=== PATIENT | male | born 1935 | race Caucasian/White ===

== ENCOUNTER 2021-12-29 15:35 | Observation (INO) | payer MEDICARE, MEDICAID, SELFPAY ==
[2021-12-29 16:05] VITALS: BP 108/58; PULSE 92; RESP 20; TEMP 36.4; O2SAT 89; BMI 15.3
--- NOTE | 2021-12-29 16:10 | PC.NURSE ---
PT PLACED ON 2 L OF O2 VIA NC SPO2 INCREASED TO 92%.
--- NOTE | 2021-12-29 16:33 | XRR_ITS ---
PROCEDURE INFORMATION: Exam: XR Chest Exam date and time: 12/29/2021 5:34 PM Age: 86 years old Clinical indication: Shortness of breath; Additional info: SOB TECHNIQUE: Imaging protocol: Radiologic exam of the chest. Views: 1 view. COMPARISON: No relevant prior studies available. FINDINGS: Lungs: Severe hyperinflation/COPD is noted.. No consolidation. Pleural spaces: Unremarkable. No pleural effusion. No pneumothorax. Heart/Mediastinum: Unremarkable. No cardiomegaly. Bones/joints: No acute abnormality. XR/XR chest 1V portable [id number] IMPRESSION: No acute findings.
--- NOTE | 2021-12-29 16:34 | ECG_ITS ---
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 Measurements Intervals [place] Rate: 91 P: 81 RI: 146 QRS: 99 QRSD: 80 T: 78 QT: 352 QTc: 433 Interpretive Statements SINUS RHYTHM ANTEROLATERAL MYOCARDIAL INFARCTION , OF INDETERMINATE AGE [40+ ms Q WAVE IN I/aVL/V3-V6] INTERPRETATION BASED ON A DEFAULT AGE OF 40 YEARS No previous ECG available for comparison Electronically Signed On 12-29-2021 17:50:25 CDT by Liudmila Arredondo M.D. [email or web address] the [email or web address] ([id number] f
[2021-12-29 17:12] LABS: Basophils # 0.1 10^3/uL (0.0-0.1); Basophils % 0.5 %; Eosinophils # 0.5 10^3/uL (0.0-0.8); Eosinophils % 3.5 %; Hematocrit 37.1 % (42.0-52.0); Hemoglobin 12.1 g/dL (11.7-16.6); Lymphocytes # 1.2 10^3/uL (0.8-4.8); Mean Corpuscular HGB Conc 32.6 g/dL (30.0-36.0); Mean Corpuscular Volume 91.8 fl (80-94); Mean Platelet Volume 9.4 fL (7.4-10.4); Monocytes # 1.3 10^3/uL (0.2-0.9); Monocytes % 8.4 %; Neutrophils # 12.01 10^3/uL (1.8-7.7); Neutrophils % 79.3 %; Nucleated Red Blood Cells % 0 %; Platelet Count 344 10^3/cmm (130-400); Red Blood Count 4.04 10^6/uL (4.1-5.3); Red Cell Distribution Width 14.7 % (12.1-15.1); White Blood Count 15.2 10^3/uL (4.0-10.0)
--- NOTE | 2021-12-29 19:11 | ED_ITS ---
HPI - General Adult General: Chief complaint: Shortness of Breath/Dyspnea Stated complaint: SOB/ WEAKNESS Time Seen by Provider: 12/29/21 19:10 History of Present Illness: Patient is an 86-year-old male with a history of COPD on 2L oxygen at [facility] presenting to the emergency room with complaints of bilateral back and chest pain. Patient tells me that he has noted subjective fever at home earlier today. Around 12:00, patient was sitting down at home when she suddenly noticed sharp knife set pain from bilateral flanks/back radiating to the chest. Patient reports cough and shortness of breath. Patient denies any diarrhea melena medic easier. Patient has no complaints of complaints. Denies any nausea/vomiting, or decreased stooling. Patient has never had pain similar to this before. Onset:12pm Duration:ongoing Location:home Severity:moderate Associated symptoms: Reports chest pain; Deny dyspnea, nausea, rash, palpitations or vomiting Review of Systems Const: Denies: fever(s) or chills Eyes: Denies: change in vision ENMT: Denies: mouth pain Card: Reports: chest pain; Denies: palpitations Resp: Denies: dyspnea or non-productive cough GI: Reports: abdominal pain; Denies: nausea, vomiting or diarrhea : Denies: dysuria Musc: Denies: extremity pain Skin/Breast: Denies: rash or new lesions Neuro: Denies: weakness in extremities Psych: Reports: other (Normal mood) Landon/Lymph: Denies: easy bruising PFSH ED PFSH: Medical History COPD (chronic obstructive pulmonary disease) Social History Smoking and tobacco status: never smoked Alcohol intake: never Substance/Drug Use: never Physical Exam Const: COMMON NORMALS: alert HENMT: COMMON NORMALS: atraumatic HEAD & SCALP: atraumatic MOUTH: moist mucous membranes not abnormal Eye: COMMON NORMALS: EOMs intact bilaterally and conjunctivae normal CONJUNCTIVA: Yes conjunctivae normal Neck/C-Spine: COMMON NORMALS: full ROM and supple Resp: COMMON NORMALS: normal respiratory effort and clear to auscultation bilaterally AUSCULTATION: clear to auscultation bilaterally Cardio: COMMON NORMALS: regular rate RATE: regular rate GI: COMMON NORMALS: Soft to palpation PALPATION: Yes Soft to palpation OTHER: +mild b/l flank TTP. NO guarding rebound, guarding, rigidity. No CVA tenderness to percussion. Neg Rivera/Neg McBurney's point tenderness, no suprabupic tenderness to palpation. Extremity: COMMON NORMALS: full ROM Neuro: SENSORIUM/ORIENTATION: Yes alert MOTOR EXAM: No Abnormal motor strength present and Other motor observations present (no focal motor deficits) Psych: COMMON NORMALS: speech normal SPEECH: Yes normal speech MOOD & AFFECT: Yes euthymic mood Course Vital Signs: Vital signs: Vital Signs Temperature 97.6 F 12/29/21 16:05 Pulse Rate 74 12/29/21 20:43 Respiratory Rate 20 H 12/29/21 20:43 Blood Pressure 125/56 12/29/21 20:43 Pulse Oximetry 100 12/29/21 20:43 Oxygen Delivery Me thod 12/29/21 20:43 Oxygen Flow Rate 2 12/29/21 20:43 MDM - General Adult Medical Decision Making 86-year-old male with history of COPD on 2 L oxygen at baseline presenting to emergency room with sudden onset of sharp abdominal/back pain radiating towards the chest. X-ray chest appears to be clear. Patient is white count 15.2. Sodium 129. Patient is noted to be satting 9324% on room air. CTA chest and pelvis not show any signs of dissection. Patient is noted to have infiltrates in the lungs. Suspect patient has pneumonia given similar cough subjective fever and shortness of breath. Patient received ceftriaxone azithromycin in the emergency room. Given age of 86 and multiple comorbidities, patient will be to the hospital for further management pneumonia. Disposition: admission Lab Data : 12/29/21 16:58 12/29/21 19:35 Radiology Impressions Chest X-Ray 12/29/21 16:33 IMPRESSION: No acute findings. Chest/Abdomen/Pelvis CTA 12/29/21 19:27 IMPRESSION: No acute vascular findings. Scattered bronchial opacification at lower lobes greater on the left. Mild dependent airspace disease right lower lobe can represent atelectasis or infiltrate. Advanced atheromatous disease especially in right lower extremity. Additional details as above. COMMENTS: Consistent with the [employer]'s Incidental Findings Committee white paper (J Am Eva Radiol 2018): Any incidental renal lesion less than 1 cm or classified as too small to characterize, or any incidental cystic renal lesion characterized as simple-appearing, is likely benign. No follow-up imaging is recommended for these lesions per consensus recommendations based on imaging criteria. Laboratory Results WBC 15.2 10^3/uL (4.0-10.0) H 12/29/21 16:58 RBC 4.04 10^6/uL (4.1-5.3) L 12/29/21 16:58 Hgb 12.1 g/dL (11.7-16.6) 12/29/21 16:58 Hct 37.1 % (42.0-52.0) L 12/29/21 16:58 MCV 91.8 fl (80-94) 12/29/21 16:58 MCH 30.0 pg (28.0-34.0) 12/29/21 16:58 MCHC 32.6 g/dL (30.0-36.0) 12/29/21 16:58 RDW 14.7 % (12.1-15.1) 12/29/21 16:58 Plt Count 344 10^3/cmm (130-400) 12/29/21 16:58 MPV 9.4 fL (7.4-10.4) 12/29/21 16:58 Neut % (Auto) 79.3 % 12/29/21 16:58 Lymph % (Auto) 8.0 % 12/29/21 16:58 Pepin % (Auto) 8.4 % 12/29/21 16:58 Eos % (Auto) 3.5 % 12/29/21 16:58 Baso % (Auto) 0.5 % 12/29/21 16:58 Neut # (Auto) 12.01 10^3/uL (1.8-7.7) H 12/29/21 16:58 Lymph # (Auto) 1.2 10^3/uL (0.8-4.8) 12/29/21 16:58 Pepin # (Auto) 1.3 10^3/uL (0.2-0.9) H 12/29/21 16:58 Eos # (Auto) 0.5 10^3/uL (0.0-0.8) 12/29/21 16:58 Baso # (Auto) 0.1 10^3/uL (0.0-0.1) 12/29/21 16:58 Nucleated RBC % (auto) 0 % 12/29/21 16:58 Nucleated RBCs # 0.0 /100WBC 12/29/21 16:58 Sodium 129 mmol/L (136-145) L 12/29/21 19:35 Potassium 4.9 mmol/L (3.5-5.1) 12/29/21 19:35 Chloride 92 mmol/L (98-107) L 12/29/21 19:35 Carbon Dioxide 25 mmol/L (22-29) 12/29/21 19:35 Anion Gap 16.9 (5-19) 12/29/21 19:35 BUN 17 mg/dL (8-23) 12/29/21 19:35 Creatinine 0.6 mg/dL (0.7-1.2) L 12/29/21 19:35 GFR Calculation Not Reportable 12/29/21 19:35 Glucose 108 mg/dL (65-115) 12/29/21 19:35 Calculated Osmolality 270 mOsm/kg (285-295) L 12/29/21 19:35 Calcium 9.4 mg/dL (8.5-10.5) 12/29/21 19:35 Total Bilirubin 0.6 mg/dL (0.15-1.2) 12/29/21 19:35 AST 19 U/L (0-40) 12/29/21 19:35 ALT 8 U/L (0-41) 12/29/21 19:35 Alkaline Phosphatase 74 U/L (40-130) 12/29/21 19:35 Troponin T Baseline 22 ng/L (0-15) H 12/29/21 19:35 Troponin T 120 Minute 20.18 ng/L (0-15) H 12/29/21 21:50 Delta Troponin T -1.82 ABS# (0-10) L 12/29/21 21:50 C-Reactive Protein 6.0 mg/L (0.0-4.9) H 12/29/21 19:35 NT-Pro-B Natriuret Pep 1019 pg/mL (0-450) H 12/29/21 19:35 Total Protein 7.1 g/dL (6.6-8.7) 12/29/21 19:35 Albumin 4.1 g/dL (3.5-5.2) 12/29/21 19:35 Globulin 3.0 g/dL (1.3-4.6) 12/29/21 19:35 Procalcitonin 0.09 ng/mL (0-0.5) 12/29/21 19:35 Coronavirus 229E (PCR) Not detected (NOT DETECT) 12/29/21 20:44 SARS-CoV-2 (PCR) Not detected (NOT DETECT) 12/29/21 20:44 Imaging Data Other Imaging: Radiologist's impression: [employer] [place] [address] CT Scan Report Signed Patient: Jitendra Kraft Unit #: [id number] : 1935 Age/Sex: 86 / M ADM Date: 12/29/21 Loc: ER Room/Bed: Attending Dr: Ordering Provider/Ordering MD: Pieter Poe MD Date of Service: 12/29/21 Procedure(s): CT angio chest abdomen pelvis Accession Number(s): [id number] Report Number: [id number] PROCEDURE INFORMATION: Exam: CTA Chest Without And With Contrast CTA Abdomen and Pelvis With Contrast Exam date and time: 12/29/2021 9:34 PM Age: 86 years old Clinical indication: Abdominal pain; Acute; Additional info: Sharp pain, possible dissection TECHNIQUE: Imaging protocol: Computed tomographic angiography of the chest without and with contrast. Computed tomographic angiography of the abdomen and pelvis with contrast. 3D rendering (Not supervised by radiologist): MIP and/or 3D reconstructed images were created by the technologist. Radiation optimization: All CT scans at this facility use at least one of these dose optimization techniques: automated exposure control; mA and/or kV adjustment per patient size (includes targeted exams where dose is matched to clinical indication); or iterative reconstruction. Contrast material: OMNIPAQUE 350; Contrast volume: 80 ml; Contrast route: INTRAVENOUS (IV);? COMPARISON: CR (CHEST, ) 12/29/2021 5:34 PM RADIATION DOSE METRICS: Total DLP (mGy-cm): 562.35 FINDINGS: VASCULATURE: Pulmonary arteries: Normal. No pulmonary emboli. Aorta: Aortic calcifications are noted. No findings of aortic aneurysm or acute aortic abnormality. Celiac trunk and mesenteric arteries: No occlusion or significant stenosis. Renal arteries: No occlusion.? Moderate narrowing left renal artery origin. Right iliac arteries: Stent in place in right common iliac artery. Moderate diffuse disease right external iliac artery. Right internal iliac artery appears occluded. Right femoral/popliteal arteries: Visualized right superficial femoral artery shows occlusive disease. Left iliac arteries: Suspected moderate narrowing distal left external iliac artery. Moderate to marked narrowing left internal iliac artery. CHEST: Lungs: Mild upper lobe predominant emphysema. Scattered bronchial opacification at lower lobes greater on the left. Mild dependent airspace disease right lower lobe. Pleural spaces: Unremarkable. No pneumothorax. No pleural effusion. Heart: Coronary calcifications are noted. ABDOMEN AND PELVIS: Liver: No mass. Gallbladder and bile ducts: Unremarkable. No calcified stones. No ductal dilation. Pancreas: Unremarkable. No mass. No ductal dilation. Spleen: Unremarkable. No splenomegaly. Adrenal glands: Unremarkable. No mass. Kidneys and ureters: Cyst at lower right kidney is likely benign. No hydronephrosis. Stomach and bowel: Unremarkable. No obstruction. No mucosal thickening. Appendix: No evidence of appendicitis. Intraperitoneal space: Unremarkable. No free air. No significant fluid collection. Urinary bladder: Unremarkable. No mass. Reproductive: Unremarkable as visualized. Lymph nodes: Unremarkable. No enlarged lymph nodes. Bones/joints: Unremarkable. No acute fracture. Soft tissues: Unremarkable. CT/CT angio chest abdomen pelvis IMPRESSION: No acute vascular findings. Scattered bronchial opacification at lower lobes greater on the left. Mild dependent airspace disease right lower lobe can represent atelectasis or infiltrate. Advanced atheromatous disease especially in right lower extremity. Additional details as above. ? COMMENTS: Consistent with the [employer]'s Incidental Findings Committee white paper (J Am Eva Radiol 2018): Any incidental renal lesion less than 1 cm or classified as too small to characterize, or any incidental cystic renal lesion characterized as simple-appearing, is likely benign. No follow-up imaging is recommended for these lesions per consensus recommendations based on imaging criteria. ? Dictated By: Pranav Wang MD Signed By: Pranav Wang MD Signed Date/Time: 12/29/212238 DD/ [address] [address] XRay Report Signed Patient: Jitendra Kraft Unit #: [id number] : 1935 Age/Sex: 86 / M ADM Date: 12/29/21 Loc: ER Room/Bed: Attending Dr: Ordering Provider/Ordering MD: Estee Mallory Date of Service: 12/29/21 Procedure(s): XR chest 1V portable [id number] Accession Number(s): [id number] Report Number: [id number] PROCEDURE INFORMATION: Exam: XR Chest Exam date and time: 12/29/2021 5:34 PM Age: 86 years old Clinical indication: Shortness of breath; Additional info: SOB TECHNIQUE: Imaging protocol: Radiologic exam of the chest. Views: 1 view. COMPARISON: No relevant prior studies available. FINDINGS: Lungs: Severe hyperinflation/COPD is noted.. No consolidation. Pleural spaces: Unremarkable. No pleural effusion. No pneumothorax. Heart/Mediastinum: Unremarkable. No cardiomegaly. Bones/joints: No acute abnormality. XR/XR chest 1V portable [id number] IMPRESSION: No acute findings. ? Dictated By: Luciana Siddiqui Signed By: Luciana Siddiqui Signed Date/Time: 12/29/21 1800 DD/ Discharge Plan Discharge Patient Disposition: Admitted As Inpatient Clinical Impression: Pneumonia Condition: Stable Coding Level of Care Code ED Staff Nurse for Chg Fwd Exam Comprehensive
--- NOTE | 2021-12-29 19:12 | ECG_ITS ---
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 Measurements Intervals [place] Rate: 84 P: 72 DC: 156 QRS: 93 QRSD: 82 T: 72 QT: 368 QTc: 436 Interpretive Statements SINUS RHYTHM BORDERLINE RIGHT AXIS DEVIATION [QRS AXIS > 90] Compared to ECG 12/29/2021 16:03:23 Myocardial infarct finding no longer present Electronically Signed On 12-30-2021 14:55:01 CDT by Liudmila Arredondo M.D. [email or web address] [id number]
--- NOTE | 2021-12-29 19:27 | CTR_ITS ---
PROCEDURE INFORMATION: Exam: CTA Chest Without And With Contrast CTA Abdomen and Pelvis With Contrast Exam date and time: 12/29/2021 9:34 PM Age: 86 years old Clinical indication: Abdominal pain; Acute; Additional info: Sharp pain, possible dissection TECHNIQUE: Imaging protocol: Computed tomographic angiography of the chest without and with contrast. Computed tomographic angiography of the abdomen and pelvis with contrast. 3D rendering (Not supervised by radiologist): MIP and/or 3D reconstructed images were created by the technologist. Radiation optimization: All CT scans at this facility use at least one of these dose optimization techniques: automated exposure control; mA and/or kV adjustment per patient size (includes targeted exams where dose is matched to clinical indication); or iterative reconstruction. Contrast material: OMNIPAQUE 350; Contrast volume: 80 ml; Contrast route: INTRAVENOUS (IV); COMPARISON: CR (CHEST, ) 12/29/2021 5:34 PM RADIATION DOSE METRICS: Total DLP (mGy-cm): 562.35 FINDINGS: VASCULATURE: Pulmonary arteries: Normal. No pulmonary emboli. Aorta: Aortic calcifications are noted. No findings of aortic aneurysm or acute aortic abnormality. Celiac trunk and mesenteric arteries: No occlusion or significant stenosis. Renal arteries: No occlusion. Moderate narrowing left renal artery origin. Right iliac arteries: Stent in place in right common iliac artery. Moderate diffuse disease right external iliac artery. Right internal iliac artery appears occluded. Right femoral/popliteal arteries: Visualized right superficial femoral artery shows occlusive disease. Left iliac arteries: Suspected moderate narrowing distal left external iliac artery. Moderate to marked narrowing left internal iliac artery. CHEST: Lungs: Mild upper lobe predominant emphysema. Scattered bronchial opacification at lower lobes greater on the left. Mild dependent airspace disease right lower lobe. Pleural spaces: Unremarkable. No pneumothorax. No pleural effusion. Heart: Coronary calcifications are noted. ABDOMEN AND PELVIS: Liver: No mass. Gallbladder and bile ducts: Unremarkable. No calcified stones. No ductal dilation. Pancreas: Unremarkable. No mass. No ductal dilation. Spleen: Unremarkable. No splenomegaly. Adrenal glands: Unremarkable. No mass. Kidneys and ureters: Cyst at lower right kidney is likely benign. No hydronephrosis. Stomach and bowel: Unremarkable. No obstruction. No mucosal thickening. Appendix: No evidence of appendicitis. Intraperitoneal space: Unremarkable. No free air. No significant fluid collection. Urinary bladder: Unremarkable. No mass. Reproductive: Unremarkable as visualized. Lymph nodes: Unremarkable. No enlarged lymph nodes. Bones/joints: Unremarkable. No acute fracture. Soft tissues: Unremarkable. CT/CT angio chest abdomen pelvis IMPRESSION: No acute vascular findings. Scattered bronchial opacification at lower lobes greater on the left. Mild dependent airspace disease right lower lobe can represent atelectasis or infiltrate. Advanced atheromatous disease especially in right lower extremity. Additional details as above. COMMENTS: Consistent with the [employer]'s Incidental Findings Committee white paper (J Am Eva Radiol 2018): Any incidental renal lesion less than 1 cm or classified as too small to characterize, or any incidental cystic renal lesion characterized as simple-appearing, is likely benign. No follow-up imaging is recommended for these lesions per consensus recommendations based on imaging criteria.
[2021-12-29 20:10] VITALS: RESP 20; O2SAT 98
[2021-12-29] MEDS: morphine 4 mg/mL SDV 1 mL IVP (20:10)
[2021-12-29 20:17] LABS: Alanine Aminotransferase 8 U/L (0-41); Albumin Level 4.1 g/dL (3.5-5.2); Alkaline Phosphatase 74 U/L (40-130); Anion Gap 16.9 (5-19); Aspartate Amino Transferase 19 U/L (0-40); Blood Urea Nitrogen 17 mg/dL (8-23); Calcium 9.4 mg/dL (8.5-10.5); Carbon Dioxide 25 mmol/L (22-29); Chloride 92 mmol/L (98-107); Glucose 108 mg/dL (65-115); Osmolality Calculated 270 mOsm/kg (285-295); Potassium 4.9 mmol/L (3.5-5.1); Sodium 129 mmol/L (136-145); Total Bilirubin 0.6 mg/dL (0.15-1.2); Total Protein 7.1 g/dL (6.6-8.7)
[2021-12-29 20:21] LABS: Troponin(5th) Baseline 22 ng/L (0-15)
[2021-12-29 20:43] VITALS: BP 125/56; PULSE 74; RESP 20; O2SAT 100
[2021-12-29 21:01] LABS: NT Pro B Type Natriuretic Pept 1019 pg/mL (0-450)
[2021-12-29] MEDS: iohexol 350 mg/mL 100 mL Btl IV (21:16)
[2021-12-29 21:33] LABS: Procalcitonin 0.09 ng/mL (0-0.5)
[2021-12-29 22:00] VITALS: BP 144/56; PULSE 76; RESP 22; O2SAT 95
[2021-12-29 22:30] LABS: Troponin 5 2HR 20.18 ng/L (0-15)
--- NOTE | 2021-12-29 22:34 | ECG_ITS ---
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 Measurements Intervals [place] Rate: 81 P: 79 AK: 162 QRS: 93 QRSD: 86 T: 72 QT: 383 QTc: 447 Interpretive Statements SINUS RHYTHM WITH OCCASIONAL SUPRAVENTRICULAR PREMATURE COMPLEXES BORDERLINE RIGHT AXIS DEVIATION [QRS AXIS > 90] Compared to ECG 12/29/2021 19:12:47 No significant changes Electronically Signed On 12-30-2021 17:21:14 CDT by Xiang Oro M.D. [id number]
[2021-12-29 22:35] LABS: Adenovirus Not Detected (NOT DETECT); Chlamydia Pneumoniae Not Detected (NOT DETECT); Coronavirus 229E,HKU1,NL63,OC4 Not Detected (NOT DETECT); Human Metapneumovirus Not Detected (NOT DETECT); Human Rhinovirus/Enterovirus Not Detected (NOT DETECT); Influenza A Not Detected (NOT DETECT); Influenza A H1 Not Detected (NOT DETECT); Influenza A H1-2009 Not Detected (NOT DETECT); Influenza A H3 Not Detected (NOT DETECT); Influenza B Not Detected (NOT DETECT); Mycoplasma Pneumoniae Not Detected (NOT DETECT); Parainfluenza Virus Type 1 Not Detected (NOT DETECT); Parainfluenza Virus Type 2 Not Detected (NOT DETECT); Parainfluenza Virus Type 3 Not Detected (NOT DETECT); Parainfluenza Virus Type 4 Not Detected (NOT DETECT); Respiratory Syncytial Virus A Not Detected (NOT DETECT); Respiratory Syncytial Virus B Not Detected (NOT DETECT); SARS-COV-2 Not Detected (NOT DETECT)
[2021-12-29 22:36] LABS: Troponin 5 2HR Delta -1.82 ABS# (0-10)
[2021-12-29] MEDS: cefTRIAXone 1,000 MG in sodium chloride 0.9% (plus) 50 ML 100 MG IV (22:50)
[2021-12-29] MEDS: azithromycin 500 MG in sodium chloride 0.9% 250 ML 250 MG IV (23:38)
[2021-12-29 23:45] VITALS: BP 180/67; PULSE 108; RESP 21; O2SAT 94
[2021-12-30] VITALS (13 sets, daily range): BP systolic 121–152; BP diastolic 46–65; PULSE 74–88; RESP 16–24; TEMP 36.2–36.5; O2SAT 95–100
--- NOTE | 2021-12-30 00:09 | USCV_ITS ---
Jitendra Kraft Age: 86 Gender: M : 1935 Exam Date: 12/30/2021 04:00 Ordering Phys: Beni Kumar MD Technologist: GISEL [place] [facility] [place]: shortness of breath. No history of cardiac intervention per patient. BP: 152 / 59 HR: 79 Rhythm: Sinus Technical Quality: Adequate MEASUREMENTS (Male / Female) Normal Values 2D ECHO LV Diastolic Diameter PLAX 2.9 cm 4.2 - 5.9 / 3.9 - 5.3 cm LV Systolic Diameter PLAX 1.8 cm IVS Diastolic Thickness 1.1 cm 0.6 - 1.0 / 0.6 - 0.9 cm IVS Systolic Thickness 1.9 cm LVPW Diastolic Thickness 1.1 cm 0.6 - 1.0 / 0.6 - 0.9 cm LVPW Systolic Thickness 1.5 cm LVOT Diameter 1.5 cm LV Ejection Fraction 2D Teich 69.9 % LV Ejection Fraction MOD 2C 41.8 % LV Ejection Fraction 2C AL 41.3 % LA Diameter 2.4 cm LA Width 3.3 cm LA Height 4.8 cm RA Width 3.6 cm RA Height 3.1 cm Aorta at Sinotubular Diameter 2.4 cm IVC Diameter 0.9 cm M-MODE Aortic Annulus Diameter 2.6 cm LA Ao Ratio MM 0.8 MV E Point Septal Separation 0.3 cm DOPPLER AV Peak Velocity 140.0 cm/s LVOT Peak Velocity 91.0 cm/s AV Area Cont Eq vti 1.2 cm squared AV Area Cont Eq pk 1.1 cm squared MV Peak Velocity 76.0 cm/s MV Area PHT 3.4 cm squared Mitral E to A Ratio 0.8 MV E' Velocity 34.0 cm/s Mitral E to MV E' Ratio 6.9 Mitral E to LV E' Lateral Ratio 5.7 Mitral E to LV E' Septal Ratio 8.8 TR Peak Velocity 275.0 cm/s TR Peak Gradient 30.3 mmHg TV Peak E Velocity 36.0 cm/s Right Atrial Pressure 5.0 mmHg Pulmonary Artery Systolic Pressu 35.3 mmHg PV Peak Velocity 113.0 cm/s RV Acceleration Time 0.1 s RV Ejection Time 0.3 s RV AcT/ET 0.4 FINDINGS Left Ventricle Left ventricle is normal in size. LV systolic function is normal with LV EF of 55 to 60%. No regional wall motion abnormalities are seen. Grade 1 diastolic dysfunction Right Ventricle Right ventricle is normal in size and function Right Atrium Normal in size Left Atrium Normal in size Mitral Valve Mitral valve is significantly thickened. No significant regurgitation Aortic Valve Aortic valve is thickened. Moderate aortic regurgitation is seen Tricuspid Valve Mild tricuspid regurgitation. Insufficient TR jet to calculate RVSP. Pulmonic Valve Not well visualized Pericardium Normal Aorta Normal in size IVC CONCLUSIONS LV systolic function is normal with EF 55 to 60%. Grade 1 diastolic dysfunction. Mitral valve is significantly thickened. Moderate aortic regurgitation noted. Mild tricuspid regurgitation. No comparison studies are available Xiang Oro MD (Electronically Signed) Final Date: 30 December 2021 12:43 S
--- NOTE | 2021-12-30 00:10 | P.HP_ITS ---
Providers/Chief Complaint Chief Complaint: SOB/ WEAKNESS History of Present Illness Jitendra Kraft is a 86 year old male with a past medical history of CAD, on 3 blood thinners, COPD, history of smoking, prostate surgery, on 2 L, who presents to to [facility] due to shortness of breath, cough, fatigue, malaise. He tells me that he is received 4 COVID vaccinations, does report subjective fevers, chills, productive cough, shortness of breath with exertion. He has also complaints of chest pain with his shortness of breath with exertion. Does report a cardiac vascular history, never had a stent but tells me he is on blood thinners, one of them is aspirin but he cannot remember the rest. Denies any diabetes, no history of strokes, no history of liver disease, no history of kidney disease, no history of cancers. In the emergency room he was found to have a pneumonia, given antibiotics, placed on 3 L, however he still complains of shortness of breath but tells me is feeling better. Review of Systems Const: Reports: fever(s) and chills Card: Reports: chest pain Resp: Reports: dyspnea and non-productive cough GI: Denies: abdominal pain : Denies: difficulty urinating Skin/Breast: Denies: rash Medications/Allergies Allergies Allergy/AdvReac Type Severity Reaction Status Date / Time No Known Allergies Allergy Verified 12/29/21 16:05 PFSH Acute PFSH: Medical History (Updated 12/30/21 @ 00:16 by Beni Kumar MD) COPD (chronic obstructive pulmonary disease) History of coronary artery disease Surgical History (Updated 12/30/21 @ 00:13 by Beni Kumar MD) History of prostate surgery Family History (Updated 12/30/21 @ 00:13 by Beni Kumar MD) Sister Old age Social History Smoking and tobacco status: never smoked Alcohol intake: never Substance/Drug Use: never Vitals/I&O/Wt Last Vital Signs Temp 97.6 F 12/29/21 16:05 Pulse 108 H 12/29/21 23:45 Resp 21 H 12/29/21 23:45 BP 180/67 12/29/21 23:45 Pulse Ox 94 12/29/21 23:45 O2 Del Method 12/29/21 23:45 O2 Flow Rate 3 12/29/21 23:45 Weight last 48 hrs Weight 43.091 kg Physical Exam Const: COMMON NORMALS: no acute distress and patient oriented x3 HENMT: COMMON NORMALS: normocephalic HEAD & SCALP: normocephalic Eye: COMMON NORMALS: Equal, round and reactive pupils present and EOMs intact bilaterally Neck/C-Spine: COMMON NORMALS: no JVD Resp: COMMON NORMALS: normal respiratory effort, No retractions and No use of accessory muscles AUSCULTATION: wheezes Cardio: COMMON NORMALS: no JVD, regular rate, regular rhythm, S1 normal heart sound present and S2 normal heart sound present RATE: regular rate RHYTHM: regular rhythm HEART SOUNDS: S1 normal heart sound present and S2 normal heart sound present GI: COMMON NORMALS: Normal to inspection, nondistended, normoactive bowel sounds present, Soft to palpation, non-tender, No hepatosplenomegaly present, no masses and no bruits PALPATION: Yes Soft to palpation and Yes No hepatosplenomegaly present Extremity: COMMON NORMALS: capillary refill normal, no clubbing, cyanosis or edema, no calf tenderness and no pedal edema Neuro: COMMON NORMALS: patient oriented x3, CN's II-XII intact bilaterally, moves all extremities and no focal motor deficits Psych: COMMON NORMALS: mental status grossly normal Data : 12/29/21 16:58 12/29/21 19:35 A&P Assessment and plan (1) Pneumonia: Status: Acute (2) COPD exacerbation: Status: Acute (3) Chest pain: Status: Acute (4) Hyponatremia: Status: Acute Plan Pneumonia -Sputum cultures, blood cultures -Rocephin and azithromycin -Monitor respiratory status -Monitor inflammatory markers -Full code -Lovenox for DVT prophylaxis COPD exacerbation -DuoNeb -Solu-Medrol followed by prednisone -Antibiotics as above -Monitor respiratory status Chest pain complaints -Sounds atypical -Serial EKGs, serial troponins, telemetry monitoring -Aspirin, statin -Patient tells me that he is on 3 blood thinners, but he only remembers aspirin, will need to call pharmacy tomorrow morning Hyponatremia, likely secondary to pneumonia, COPD, monitor Does have elevated BNP, no pitting edema on exam, will consider Lasix Attestations Medical Necessity Statement*: Patient requires hospitalization, outpatient with observation, for pneumonia, COPD exacerbation, hyponatremia, chest pain Coding Level of Care Code Acute [employer] for [facility] Diagnoses Pneumonia J18.9 COPD exacerbation J44.1 Chest pain R07.9 Hyponatremia E87.1
[2021-12-30 00:45] LABS: Estmated Average Glucose 105; Hemoglobin A1C 5.3 % (4.0-6.0)
[2021-12-30] MEDS: amlodipine 10 mg Tablet PO (01:18)
[2021-12-30] MEDS: aspirin 81 mg EC Tablet PO ×2 (01:18→08:43)
[2021-12-30] MEDS: enoxaparin 40 mg/0.4 mL Syringe SUBCUT (01:18)
[2021-12-30] MEDS: atorvastatin 40 mg Tablet PO (01:18)
[2021-12-30] MEDS: pantoprazole 40 mg SDV IVP (01:18)
--- NOTE | 2021-12-30 07:15 | PC.NURSE ---
Pt resting in bed, was sleeping and woke up when nurse entered room. Reconnected pt to VS monitor. Pt is alert and oriented to person, place, and time. Denies any current chest pain or shortness of breath. Reports had dizziness last time he attempted to stand up. Lungs sounds clear bilat. Call light within reach and instructed on use. Side rails up. Lights dimmed for pt comfort. Pt denies further needs at this time.
--- NOTE | 2021-12-30 08:07 | PC.PHAR ---
pt unable to verify medications-pt state his daughter deena could verify his medications-called deena [phone] no answer left message-medications entered are meds that ext med history shows has been filled recently-notes are made in the pharmacy comments with last fill dates and d/s-lisinopril 10mg daily filled on 09/23/21 90d/s and lisinopril 5mg daily filled 12/22/21
[2021-12-30] MEDS: ipratropium-albuterol 3 mL Neb INHALATION ×2 (08:16→11:36)
[2021-12-30] MEDS: budesonide 0.5 mg/2 mL Neb INHALATION (08:16)
[2021-12-30] MEDS: predniSONE 20 mg Tablet 40 MG PO (08:43)
--- NOTE | 2021-12-30 09:49 | PC.NURSE ---
Patient resting in bed, utilizing the urinal without assistance. Pt denies needs at this time. Call light within reach, instructed on use.
--- NOTE | 2021-12-30 10:02 | PC.NURSE ---
answered call light, pt requesting assistance to find his cell phone so he can call a ride at discharge. Assisted patient, phone found in bed and handed to patient. Call light remains in place.
[2021-12-30] MEDS: acetaminophen 325 mg Tablet 650 MG PO (10:09)
--- NOTE | 2021-12-30 10:11 | PC.NURSE ---
Pt reports pain described as knots in his stomach rated 7/10. Pt states he does not want morphine. Informed pt that he has PRN tylenol ordered as well, pt stated he would like the tylenol. Medication brought to patient.
--- NOTE | 2021-12-30 10:35 | PM.DCS ---
Discharge Providers Date of Admission: 12/30/21 00:42 Date of Discharge: December 30, 2021 Attending Provider at Admission: Beni Kumar MD Attending Provider at Discharge: Bean Morales MD Diagnoses at Discharge Discharge Diagnosis (1) Pneumonia: Status: Acute (2) COPD exacerbation: Status: Acute (3) Chest pain: Status: Acute (4) Hyponatremia: Status: Acute Reason for Visit Reason for Visit: SOB/ WEAKNESS Hospital Course Hospital Course 86-year male who uses 3 L of oxygen at baseline presented to the hospital worsening shortness of breath. He has been diagnosed with community-acquired pneumonia, he remained afebrile, leukocytosis 1 15,000, patient on 12/30 was seen in the ER bed #5, patient is stating that he wants to go home as his ox requirement has not worsened and he is feeling better. He is asking for a wheelchair. At the time of discharge I will give him a wheelchair, Augmentin, 4 days of Lasix his echo report is pending, clinically he looks dehydrated. He does have hyponatremia, with high BNP, I will follow-up with his echo report and update him. We will give him a BMP prescription as well to be checked after 3 days. I will refill his albuterol nebulizer, Physical Exam Narrative: On clinical exam I did not appreciate rhonchi or wheezing, mild crackles at base of the lungs Currently on 3 L nasal cannula Awake and alert Clinically does not look fluid overloaded Abdomen is soft Right below-knee amputation No signs of edema or erythema of left leg Nonfocal neuro exam Hard of hearing Conversational dyspnea Discharge Data Studies Completed and Pending Completed Studies During Hospitalization Category Date Time Status CTA chest abdomen pelvis [CT angio chest abdomen pelvis Cat Scan 12/29/21 19:27 Completed ] Stat XR chest 1V portable [id number] Urgent Exams 12/29/21 16:33 Completed Pending at discharge Category Date Time Status C Reactive Protein AM LABS Lab 12/31/21 04:00 Ordered C Reactive Protein AM LABS Lab 01/01/22 04:00 Ordered C Reactive Protein AM LABS Lab 01/02/22 04:00 Ordered Complete Blood Count w/Auto AM LABS Lab 12/31/21 04:00 Ordered Complete Blood Count w/Auto AM LABS Lab 01/01/22 04:00 Ordered Complete Blood Count w/Auto AM LABS Lab 01/02/22 04:00 Ordered Comprehensive Metabolic Panel AM LABS Lab 12/31/21 04:00 Ordered Comprehensive Metabolic Panel AM LABS Lab 01/01/22 04:00 Ordered Comprehensive Metabolic Panel AM LABS Lab 01/02/22 04:00 Ordered Lipid Panel AM LABS Lab 12/31/21 04:00 Ordered Magnesium AM LABS Lab 12/31/21 04:00 Ordered Magnesium AM LABS Lab 01/01/22 04:00 Ordered Magnesium AM LABS Lab 01/02/22 04:00 Ordered NT Pro B Type Natriuretic Pept QAM Lab 12/31/21 06:00 Ordered NT Pro B Type Natriuretic Pept QAM Lab 01/01/22 06:00 Ordered NT Pro B Type Natriuretic Pept QAM Lab 01/02/22 06:00 Ordered Phosphorus AM LABS Lab 12/31/21 04:00 Ordered Phosphorus AM LABS Lab 01/01/22 04:00 Ordered Phosphorus AM LABS Lab 01/02/22 04:00 Ordered Procalcitonin AM LABS Lab 12/31/21 04:00 Ordered Procalcitonin AM LABS Lab 01/01/22 04:00 Ordered Procalcitonin AM LABS Lab 01/02/22 04:00 Ordered Prothrombin Time INR AM LABS Lab 12/31/21 04:00 Ordered Prothrombin Time INR AM LABS Lab 01/01/22 04:00 Ordered Prothrombin Time INR AM LABS Lab 01/02/22 04:00 Ordered Thyroid Stimulating Hormone AM LABS Lab 12/31/21 04:00 Ordered CV. echo complete* [id number] Stat Ultrasound 12/30/21 00:09 Taken Radiology Impressions Chest X-Ray 12/29/21 16:33 IMPRESSION: No acute findings. Chest/Abdomen/Pelvis CTA 12/29/21 19:27 IMPRESSION: No acute vascular findings. Scattered bronchial opacification at lower lobes greater on the left. Mild dependent airspace disease right lower lobe can represent atelectasis or infiltrate. Advanced atheromatous disease especially in right lower extremity. Additional details as above. COMMENTS: Consistent with the [employer]'s Incidental Findings Committee white paper (J Am Eva Radiol 2018): Any incidental renal lesion less than 1 cm or classified as too small to characterize, or any incidental cystic renal lesion characterized as simple-appearing, is likely benign. No follow-up imaging is recommended for these lesions per consensus recommendations based on imaging criteria. Laboratory Results WBC 15.2 10^3/uL (4.0-10.0) H 12/29/21 16:58 RBC 4.04 10^6/uL (4.1-5.3) L 12/29/21 16:58 Hgb 12.1 g/dL (11.7-16.6) 12/29/21 16:58 Hct 37.1 % (42.0-52.0) L 12/29/21 16:58 MCV 91.8 fl (80-94) 12/29/21 16:58 MCH 30.0 pg (28.0-34.0) 12/29/21 16:58 MCHC 32.6 g/dL (30.0-36.0) 12/29/21 16:58 RDW 14.7 % (12.1-15.1) 12/29/21 16:58 Plt Count 344 10^3/cmm (130-400) 12/29/21 16:58 MPV 9.4 fL (7.4-10.4) 12/29/21 16:58 Neut % (Auto) 79.3 % 12/29/21 16:58 Lymph % (Auto) 8.0 % 12/29/21 16:58 Ward % (Auto) 8.4 % 12/29/21 16:58 Eos % (Auto) 3.5 % 12/29/21 16:58 Baso % (Auto) 0.5 % 12/29/21 16:58 Neut # (Auto) 12.01 10^3/uL (1.8-7.7) H 12/29/21 16:58 Lymph # (Auto) 1.2 10^3/uL (0.8-4.8) 12/29/21 16:58 Ward # (Auto) 1.3 10^3/uL (0.2-0.9) H 12/29/21 16:58 Eos # (Auto) 0.5 10^3/uL (0.0-0.8) 12/29/21 16:58 Baso # (Auto) 0.1 10^3/uL (0.0-0.1) 12/29/21 16:58 Nucleated RBC % (auto) 0 % 12/29/21 16:58 Nucleated RBCs # 0.0 /100WBC 12/29/21 16:58 Sodium 129 mmol/L (136-145) L 12/29/21 19:35 Potassium 4.9 mmol/L (3.5-5.1) 12/29/21 19:35 Chloride 92 mmol/L (98-107) L 12/29/21 19:35 Carbon Dioxide 25 mmol/L (22-29) 12/29/21 19:35 Anion Gap 16.9 (5-19) 12/29/21 19:35 BUN 17 mg/dL (8-23) 12/29/21 19:35 Creatinine 0.6 mg/dL (0.7-1.2) L 12/29/21 19:35 GFR Calculation Not Reportable 12/29/21 19:35 Glucose 108 mg/dL (65-115) 12/29/21 19:35 Estimat Average Glucose 105 12/29/21 16:57 Hemoglobin A1c 5.3 % (4.0-6.0) 12/29/21 16:57 Calculated Osmolality 270 mOsm/kg (285-295) L 12/29/21 19:35 Calcium 9.4 mg/dL (8.5-10.5) 12/29/21 19:35 Total Bilirubin 0.6 mg/dL (0.15-1.2) 12/29/21 19:35 AST 19 U/L (0-40) 12/29/21 19:35 ALT 8 U/L (0-41) 12/29/21 19:35 Alkaline Phosphatase 74 U/L (40-130) 12/29/21 19:35 Troponin T Baseline 22 ng/L (0-15) H 12/29/21 19:35 Troponin T 120 Minute 20.18 ng/L (0-15) H 12/29/21 21:50 Delta Troponin T -1.82 ABS# (0-10) L 12/29/21 21:50 Troponin T Hi Sens 6Hr 19.10 ng/L (0-15) H 12/30/21 01:39 Troponin T Hi Sens 6Hr Delta -2.90 ng/L (0-12) L 12/30/21 01:39 C-Reactive Protein 6.0 mg/L (0.0-4.9) H 12/29/21 19:35 NT-Pro-B Natriuret Pep 1019 pg/mL (0-450) H 12/29/21 19:35 Total Protein 7.1 g/dL (6.6-8.7) 12/29/21 19:35 Albumin 4.1 g/dL (3.5-5.2) 12/29/21 19:35 Globulin 3.0 g/dL (1.3-4.6) 12/29/21 19:35 Procalcitonin 0.09 ng/mL (0-0.5) 12/29/21 19:35 Coronavirus 229E (PCR) Not detected (NOT DETECT) 12/29/21 20:44 SARS-CoV-2 (PCR) Not detected (NOT DETECT) 12/29/21 20:44 Vitals Last Vital Signs Temp 97.7 F 12/30/21 07:38 Pulse 82 12/30/21 09:00 Resp 24 H 12/30/21 09:00 BP 136/56 12/30/21 09:00 Pulse Ox 95 12/30/21 09:00 O2 Del Method 12/30/21 09:00 O2 Flow Rate 2 12/30/21 09:00 Discharge Plan Discharge Patient Disposition: Home Condition: Stable Prescriptions: New albuterol sulfate 1.25 mg/3 mL solution for nebulization 2.5 mg inhalation TID PRN (Reason: shortness of breath or wheezing) Qty: 90 4RF furosemide [Lasix] 20 mg tablet 10 mg PO DAILY Qty: 4 0RF amoxicillin-pot clavulanate [Augmentin] 500-125 mg tablet 1 tab PO DAILY Qty: 10 0RF methylprednisolone [Medrol (Jay)] 4 mg tablets,dose pack 4 mg PO DAILY Qty: 21 0RF Continued atorvastatin 40 mg tablet 40 mg PO DAILY trazodone 50 mg tablet 50 mg PO BEDTIME alprazolam 1 mg tablet 0.5 - 1 mg PO Q8H PRN (Reason: Anxiety) isosorbide mononitrate 60 mg tablet extended release 24 hr 60 mg PO DAILY tamsulosin 0.4 mg capsule 0.4 mg PO DAILY baclofen 10 mg tablet 10 mg PO Q8H PRN (Reason: Muscle Spasm) hydrocodone-acetaminophen 7.5-325 mg tablet 1 tab PO Q4H PRN (Reason: Pain) Nitrostat 0.4 mg Tablet, Sublingual 0.4 mg SUBLINGUAL Q5M PRN (Reason: Chest Pain) Rx Instructions: do not exceed 3 doses per episode lisinopril 5 mg tablet 5 mg PO DAILY finasteride 5 mg tablet 5 mg PO DAILY metoprolol tartrate 25 mg tablet 25 mg PO BID ipratropium-albuterol 0.5 mg-3 mg(2.5 mg base)/3 mL solution for nebulization 3 ml INHALATION Q4H Qty: 15 4RF Discontinued albuterol sulfate 2.5 mg /3 mL (0.083 %) solution for nebulization 2.5 mg inhalation Q6H albuterol sulfate 90 mcg/actuation HFA aerosol inhaler 2 puff INHALATION Q4H PRN (Reason: Shortness Of Breath) Discharge Orders: Discharge Order (Routine); Ordered 12/30/21 Ordered By: Bean Morales Other Ambulatory Orders: XR chest 2V* [id number] (Routine) Timeframe: 2 Months Facility: [facility] - Location: Radiology [place] [facility] Ordered By: Bean Morales DME: Wheelchair (Order) Timeframe: 1 Day Location: None Selected Ordered By: Bean Morales Discharge Diet: Cardiac Discharge Activity: Wheelchair as instructed Patient Instructions: Abdominal Pain (ED), Opioid Safety Discharge Attestations Time Spent in Discharge Care*: less than 30 min Quality Metrics Clinical Quality Measures [ No reported AMI, CVA or VTE this stay] Coding Level of Care Code Acute g FW PA note Diagnoses Pneumonia J18.9 COPD exacerbation J44.1 Chest pain R07.9 Hyponatremia E87.1
--- NOTE | 2021-12-30 10:53 | PC.NURSE ---
er nurse el called for help in getting pts meds finalized, assisted him in getting them transmitted and finalized
--- NOTE | 2021-12-30 12:37 | PC.NURSE ---
pt requesting to go home and have wheelchair delivered to home and does not want to wait here. Pt dressed self and placed self in wheelchair and disconnected self from vital sign monitor.
--- NOTE | 2021-12-30 14:48 | DCPLANNER ---
etl manager was asked to arrange for some DME equipment, a wheelchair, for patient. etl manager spoke with patient and asked patient what company he would like to use to get his wheelchair from. Patient stated that he wanted to use [employer]. etl manager called [facility] to confirm that patient gets his oxygen thru [facility], and patient does. etl manager had patient sign Patient Choice sheet stating that [employer] was his first choice. etl manager faxed patients information to [facility], and confirmed that they received it. etl manager called [facility] and asked if they could deliver the wheelchair to patients home. etl manager was told that the company would take the wheelchair to patients home.
== END 2021-12-30 12:41 | disposition home or self-care (01) ==
LOC: ER 12-30 02:12 → ER IP 12-30 06:47
PROVIDERS: Physician Assistant; Admitting Provider Family Medicine; Emergency Provider Emergency Medicine; Visit Provider Internal Medicine
DX: J18.9 Pneumonia, unspecified organism (principal); J44.1 Chronic obstructive pulmonary disease with (acute) exacerbation; J44.0 Chronic obstructive pulmonary disease with (acute) lower respiratory infection; R07.9 Chest pain, unspecified; E87.1 Hypo-osmolality and hyponatremia; Z99.81 Dependence on supplemental oxygen; I25.10 Atherosclerotic heart disease of native coronary artery without angina pectoris; Z79.01 Long term (current) use of anticoagulants
CPT/HCPCS: 71045; 71275; 74174; 80053; 83036; 83880; 84145; 84484; 85025; 86140; 87635; 93005; 93306; 94640; 94664; 96365; 96367; 96372; 96375; 99285; C9113; G0378; J0456; J0696; J1650; J2270; J2930; J7050; J7512; J7626; Q9967